=== PATIENT | female | born 1955 | race Caucasian/White ===

== ENCOUNTER 2017-05-11 01:26 | Emergency (ER) | payer BC ==
[2017-05-11] MEDS ORDERED: Metoprolol Tartrate 50 MG Tab PO STA (01:51)
[2017-05-11] MEDS ORDERED: Ketorolac 30 MG/ML SDV IVPUSH ONE (01:51)
--- NOTE | 2017-05-11 02:01 | EDM.PDOC ---
ED HPI GENERAL MEDICAL PROBLEM - General Chief Complaint: Back Pain or Injury Stated Complaint: BACK PAIN Time Seen by Provider: 05/11/17 02:00 - History of Present Illness INITIAL COMMENTS - FREE TEXT/NARRATIVE: HISTORY AND PHYSICAL: History of present illness: Patient is a 61-year-old white female presents with a concern of right posterior rib pain which radiation to her anterior right lower ribs. This came on somewhat acutely tonight she denies trauma denies chest pain shortness of breath nausea vomiting fever chills or other concern. Review of systems: As per history of present illness and below otherwise all systems reviewed and negative. Past medical history: As per history of present illness and as reviewed below otherwise noncontributory. Surgical history: As per history of present illness and as reviewed below otherwise noncontributory. Social history: No reported history of drug or alcohol abuse. Family history: As per history of present illness and as reviewed below otherwise noncontributory. Physical exam: HEENT: Atraumatic, normocephalic, pupils reactive, negative for conjunctival pallor or scleral icterus, mucous membranes moist, throat clear, neck supple, nontender, trachea midline. Lungs: Clear to auscultation, breath sounds equal bilaterally, chest nontender. Heart: S1S2, regular, negative for clicks, rubs, or JVD. Abdomen: Soft, nondistended, no localized tenderness. Negative for masses or hepatosplenomegaly. Negative for costovertebral tenderness. Pelvis: Stable nontender. Genitourinary: Deferred. Rectal: Deferred. Extremities: Atraumatic, negative for cords or calf pain. Neurovascular unremarkable. Neuro: Awake, alert, oriented. Cranial nerves II through XII unremarkable. Cerebellum unremarkable. Motor and sensory unremarkable throughout. Exam nonfocal. Diagnostics: CBC CMP troponin PT/INR chest x-ray EKG Therapeutics: Saline 1 L bolus and Toradol 30 mg IV Impression: #1 right thoracoabdominal pain Definitive disposition and diagnosis as appropriate pending reevaluation and review of above. Middle back Pain Score (Numeric/FACES): 10 - Related Data Allergies Allergy/AdvReac Type Severity Reaction Status Date / Time Sulfa (Sulfonamide Allergy Rash Verified 05/11/17 01:39 Antibiotics) Home Meds: Home Meds Albuterol [IMW: Albuterol HFA] 2 puff INH ASDIRECTED 12/12/15 [History] LORazepam [Ativan] 0.5 mg PO ASDIRECTED PRN 12/12/15 [History] Metoprolol Succinate [Toprol XL] 50 mg PO DAILY 12/12/15 [History] Mometasone/Formoterol [Dulera 200-5 MCG] 2 puff IH BIDRT 12/12/15 [History] Acetaminophen/oxyCODONE [Percocet 325-5 MG] 1 tab PO ASDIRECTED 05/13/17 [ History] Past Medical History HEENT History: Reports: Hard of Hearing Cardiovascular History: Reports: High Cholesterol, Hypertension Respiratory History: Reports: COPD, Other (See Below) Other Respiratory History: emphysema Gastrointestinal History: Reports: Cholelithiasis [employer] History: Reports: - Past Surgical History HEENT Surgical History: Reports: Oral Surgery GI Surgical History: Reports: Appendectomy, Cholecystectomy Female Surgical History: Reports: Section, Hysterectomy Musculoskeletal Surgical History: Reports: Other (See Below) Other Musculoskeletal Surgeries/Procedures:: Back sx Social & Family History - Family History Family Medical History: Noncontributory - Tobacco Use Smoking Status *Q: Never Smoker Years of Tobacco use: 30 Packs/Tins Daily: 0.1 - Caffeine Use Caffeine Use: Reports: Coffee - Recreational Drug Use Recreational Drug Use: No ED ROS GENERAL - Review of Systems Review Of Systems: ROS reveals no pertinent complaints other than HPI. ED EXAM, GENERAL - Physical Exam Exam: See Below (See dictation) Course - Vital Signs Last Recorded V/S: Last Vital Signs Temp 36.3 C 05/11/17 01:26 Pulse 79 05/11/17 05:15 Resp 17 05/11/17 05:15 BP 164/81 H 05/11/17 05:15 Pulse Ox 97 05/11/17 05:15 - Orders/Labs/Meds Labs: Laboratory Tests 05/11/17 05/11/17 05/11/17 Range/Units 01:50 01:50 01:50 WBC 9.89 (4.0-11.0) K/uL RBC 4.94 (4.30-5.90) M/uL Hgb 16.0 (12.0-16.0) g/dL Hct 44.2 (36.0-46.0) % MCV 89.5 (80.0-98.0) fL MCH 32.4 H (27.0-32.0) pg MCHC 36.2 (31.0-37.0) g/dL RDW Std Deviation 40.3 (28.0-62.0) fl RDW Coeff of Joel 12 (11.0-15.0) % Plt Count 230 (150-400) K/uL MPV 9.50 (7.40-12.00) fL Neut % (Auto) 72.7 (48.0-80.0) % Lymph % (Auto) 19.5 (16.0-40.0) % Sierra % (Auto) 6.1 (0.0-15.0) % Eos % (Auto) 1.5 (0.0-7.0) % Baso % (Auto) 0.2 (0.0-1.5) % Neut # (Auto) 7.2 H (1.4-5.7) K/uL Lymph # (Auto) 1.9 (0.6-2.4) K/uL Sierra # (Auto) 0.6 (0.0-0.8) K/uL Eos # (Auto) 0.2 (0.0-0.7) K/uL Baso # (Auto) 0.0 (0.0-0.1) K/uL Nucleated RBC % 0.0 /100WBC Nucleated RBCs # 0 K/uL INR 1.05 Sodium 138 (136-145) mmol/L Potassium 3.9 (3.5-5.1) mmol/L Chloride 103 (98-107) mmol/L Carbon Dioxide 24.5 (21.0-32.0) mmol/L BUN 15 (7.0-18.0) mg/dL Creatinine 0.9 (0.6-1.0) mg/dL Est Cr Clr Drug Dosing TNP Estimated GFR (MDRD) > 60.0 ml/min Glucose 109 H (74-106) mg/dL Calcium 9.1 (8.5-10.1) mg/dL Total Bilirubin 0.4 (0.2-1.0) mg/dL AST 18 (15-37) IU/L ALT 22 (14-63) IU/L Alkaline Phosphatase 72 (46-116) U/L CK-MB (CK-2) 0.8 (0-3.6) ng/mL Troponin I < 0.050 (0.000-0.056) ng/mL Total Protein 7.4 (6.4-8.2) g/dL Albumin 3.9 (3.4-5.0) g/dL Globulin 3.5 (2.0-3.5) g/dL Albumin/Globulin Ratio 1.1 L (1.3-2.8) Urine Color Urine Appearance Urine pH (5.0-8.0) Ur Specific [place] (1.001-1.035) Urine Protein (NEGATIVE) mg/dL Urine Glucose (UA) (NEGATIVE) mg/dL Urine Ketones (NEGATIVE) mg/dL Urine Occult Blood (NEGATIVE) Urine Nitrite (NEGATIVE) Urine Bilirubin (NEGATIVE) Urine Urobilinogen (<2.0) EU/dL Ur Leukocyte Esterase (NEGATIVE) Urine RBC (0-2/HPF) Urine WBC (0-5/HPF) Ur Epithelial Cells (NONE-FEW) Urine Bacteria (NEGATIVE) Urine Mucus (NONE-MOD) 05/11/17 Range/Units 02:02 WBC (4.0-11.0) K/uL RBC (4.30-5.90) M/uL Hgb (12.0-16.0) g/dL Hct (36.0-46.0) % MCV (80.0-98.0) fL MCH (27.0-32.0) pg MCHC (31.0-37.0) g/dL RDW Std Deviation (28.0-62.0) fl RDW Coeff of Joel (11.0-15.0) % Plt Count (150-400) K/uL MPV (7.40-12.00) fL Neut % (Auto) (48.0-80.0) % Lymph % (Auto) (16.0-40.0) % Sierra % (Auto) (0.0-15.0) % Eos % (Auto) (0.0-7.0) % Baso % (Auto) (0.0-1.5) % Neut # (Auto) (1.4-5.7) K/uL Lymph # (Auto) (0.6-2.4) K/uL Sierra # (Auto) (0.0-0.8) K/uL Eos # (Auto) (0.0-0.7) K/uL Baso # (Auto) (0.0-0.1) K/uL Nucleated RBC % /100WBC Nucleated RBCs # K/uL INR Sodium (136-145) mmol/L Potassium (3.5-5.1) mmol/L Chloride (98-107) mmol/L Carbon Dioxide (21.0-32.0) mmol/L BUN (7.0-18.0) mg/dL Creatinine (0.6-1.0) mg/dL Est Cr Clr Drug Dosing Estimated GFR (MDRD) ml/min Glucose (74-106) mg/dL Calcium (8.5-10.1) mg/dL Total Bilirubin (0.2-1.0) mg/dL AST (15-37) IU/L ALT (14-63) IU/L Alkaline Phosphatase (46-116) U/L CK-MB (CK-2) (0-3.6) ng/mL Troponin I (0.000-0.056) ng/mL Total Protein (6.4-8.2) g/dL Albumin (3.4-5.0) g/dL Globulin (2.0-3.5) g/dL Albumin/Globulin Ratio (1.3-2.8) Urine Color YELLOW Urine Appearance CLEAR Urine pH 6.5 (5.0-8.0) Ur Specific [place] 1.015 (1.001-1.035) Urine Protein NEGATIVE (NEGATIVE) mg/dL Urine Glucose (UA) NEGATIVE (NEGATIVE) mg/dL Urine Ketones NEGATIVE (NEGATIVE) mg/dL Urine Occult Blood NEGATIVE (NEGATIVE) Urine Nitrite NEGATIVE (NEGATIVE) Urine Bilirubin NEGATIVE (NEGATIVE) Urine Urobilinogen 0.2 (<2.0) EU/dL Ur Leukocyte Esterase NEGATIVE (NEGATIVE) Urine RBC 0-2 (0-2/HPF) Urine WBC 0-1 (0-5/HPF) Ur Epithelial Cells FEW (NONE-FEW) Urine Bacteria FEW (NEGATIVE) Urine Mucus LIGHT (NONE-MOD) Meds: Medications Discontinued Medications Generic Name Dose Route Start Last Admin Trade Name Freq PRN Reason Stop Dose Admin Hydromorphone HCl 1 mg 05/11/17 02:59 Dilaudid IVPUSH 05/11/17 03:00 ONETIME ONE Hydromorphone HCl Confirm 05/11/17 03:03 Dilaudid Administered 05/11/17 03:04 Dose 2 mg .ROUTE .STK-MED ONE Ketorolac Tromethamine 30 mg 05/11/17 01:51 05/11/17 01:59 Toradol IVPUSH 05/11/17 01:52 30 mg ONETIME ONE Administration Metoprolol Tartrate 50 mg 05/11/17 01:51 05/11/17 01:57 Lopressor PO 05/11/17 01:52 50 mg NOW STA Administration Departure - Departure Time of Disposition: 06:34 Disposition: Home, Self-Care 01 Condition: Good Clinical Impression: Pain - Discharge Information Instructions: Hypertension, [id number], Back Pain, Adult, [id number] Referrals: Myla Scott [employer]IDENT HALL DIRECTOR [Primary Care Provider] - Forms: ED Department Discharge
[2017-05-11 02:39] LABS: CHLORIDE,CL 103 mmol/L (98-107); SODIUM,NA 138 mmol/L (136-145)
[2017-05-11] MEDS ORDERED: HYDROmorphone 2 MG/ML SDV IVPUSH ONE (02:59)
[2017-05-11] MEDS ORDERED: HYDROmorphone 2 MG/ML SDV ONE (03:03)
--- NOTE | 2017-05-11 10:41 | CR ---
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 Site : 1955 Study: XRay Chest [id number]/27/2018 2:10:36 AM Ordering Physician: Doctor Orona Final Report: Indication: Back pain Technique: Chest 1 view Comparison: 12/12/2015. Findings/Impression: Cardiovascular and mediastinum: Heart size and vasculature are normal in caliber and appearance. Mediastinum is within normal limits. Lungs and pleural space: Possible upper lobe emphysematous changes. No consolidation or pleural effusions. Bones and soft tissues: No significant findings. Dictated by Wu Russell MD @ 05/11/2017 2:17:45 AM Dictated by: Wu Russell MD @ 05/11/2017 02:17:50 (Electronic Signature) Report Signed by Proxy. JABIER
--- NOTE | 2017-05-11 13:42 | CT ---
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 Site : 1955 Study: CT Chest/Abd/Pelvis Angio [id number]/27/2018 4:08:27 AM Ordering Physician: ZEFERINO Final Report: INDICATION: BACK PAIN ? AAA HISTORY: Back pain. Evaluate for abdominal aortic aneurysm. COMPARISON: None. TECHNIQUE: CT angiogram of the chest, abdomen, and pelvis. 100 cc of Isovue-370 IV. Coronal /sagittal reconstruction images. FINDINGS: Chest: The ascending thoracic aorta measures 2.8 cm in dimension. The descending thoracic aorta is normal in caliber. There is no thoracic aortic aneurysm or dissection. The brachiocephalic trunk, left common carotid artery, left subclavian artery are normal in caliber. There is no pleural or pericardial effusion. The main pulmonary artery is normal in caliber. There is no pulmonary emboli. No thoracic lymphadenopathy. The lung windows demonstrate advanced centrilobular emphysema. There is no endobronchial mass. There is no bronchiectasis. There is no architectural distortion. There is no suspicious pulmonary nodule. There is no acute airspace disease. Abdomen/pelvis: The celiac axis, SMA, and VIRAL are patent. There is no abdominal aortic aneurysm. There is no retroperitoneal stranding. No dissection flap. Symmetric nephrograms. Benign right renal cyst. No hydronephrosis. No perinephric fluid collection. The spleen size is normal. There is no pancreatic mass or pancreatic duct dilation. No glandular atrophy. No solid hepatic mass. Cholecystectomy. Normal caliber biliary tree. The included segments of the small bowel and colon are normal. There is no mucosal hyper enhancement. No perienteric edema. Minimal diverticula within the colon. No adenopathy by size criteria in the pelvis, retroperitoneum, gastrohepatic ligament, small bowel mesentery. The bone windows demonstrate no lytic or blastic bone lesions. There is osteophytic spurring present at the endplates of the thoracic spine. On sagittal reconstruction images, there is discogenic sclerosis and disc height loss, primarily L4-L5. Impression: 1. No abdominal aortic aneurysm, dissection, or retroperitoneal stranding/ hematoma. 2. The visceral artery branches are patent. 3. No thoracic aortic aneurysm or dissection. 4. No central pulmonary emboli. 5. Advanced centrilobular emphysema. 6. No thoracic, abdominal, or pelvic lymphadenopathy. 7. Benign right renal cyst. Dictated by Sebastian Donnelly MD @ 05/11/2017 4:58:57 AM Dictated by: Sebastian Donnelly MD @ 05/11/2017 04:59:24 (Electronic Signature) Report S[facility] Proxy. [facility]
--- NOTE | 2017-05-11 13:43 | CT ---
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 Site : 1955 Study: CT Chest/Abd/Pelvis Angio [id number]/27/2018 4:08:27 AM Ordering Physician: ZEFERINO Final Report: INDICATION: BACK PAIN ? AAA HISTORY: Back pain. Evaluate for abdominal aortic aneurysm. COMPARISON: None. TECHNIQUE: CT angiogram of the chest, abdomen, and pelvis. 100 cc of Isovue-370 IV. Coronal /sagittal reconstruction images. FINDINGS: Chest: The ascending thoracic aorta measures 2.8 cm in dimension. The descending thoracic aorta is normal in caliber. There is no thoracic aortic aneurysm or dissection. The brachiocephalic trunk, left common carotid artery, left subclavian artery are normal in caliber. There is no pleural or pericardial effusion. The main pulmonary artery is normal in caliber. There is no pulmonary emboli. No thoracic lymphadenopathy. The lung windows demonstrate advanced centrilobular emphysema. There is no endobronchial mass. There is no bronchiectasis. There is no architectural distortion. There is no suspicious pulmonary nodule. There is no acute airspace disease. Abdomen/pelvis: The celiac axis, SMA, and VIRAL are patent. There is no abdominal aortic aneurysm. There is no retroperitoneal stranding. No dissection flap. Symmetric nephrograms. Benign right renal cyst. No hydronephrosis. No perinephric fluid collection. The spleen size is normal. There is no pancreatic mass or pancreatic duct dilation. No glandular atrophy. No solid hepatic mass. Cholecystectomy. Normal caliber biliary tree. The included segments of the small bowel and colon are normal. There is no mucosal hyper enhancement. No perienteric edema. Minimal diverticula within the colon. No adenopathy by size criteria in the pelvis, retroperitoneum, gastrohepatic ligament, small bowel mesentery. The bone windows demonstrate no lytic or blastic bone lesions. There is osteophytic spurring present at the endplates of the thoracic spine. On sagittal reconstruction images, there is discogenic sclerosis and disc height loss, primarily L4-L5. Impression: 1. No abdominal aortic aneurysm, dissection, or retroperitoneal stranding/ hematoma. 2. The visceral artery branches are patent. 3. No thoracic aortic aneurysm or dissection. 4. No central pulmonary emboli. 5. Advanced centrilobular emphysema. 6. No thoracic, abdominal, or pelvic lymphadenopathy. 7. Benign right renal cyst. Dictated by Sebastian Donnelly MD @ 05/11/2017 4:58:57 AM Dictated by: Sebastian Donnelly MD @ 05/11/2017 04:59:24 (Electronic Signature) Report Signed by Proxy. [facility]
[2017-05-12 04:22] VITALS: BP 164/81
== END 2017-05-11 05:31 | disposition home or self-care (01) ==
LOC: MW.ED 01:26
DX: M54.6 Pain in thoracic spine (principal); E78.00 Pure hypercholesterolemia, unspecified; I10 Essential (primary) hypertension; J44.9 Chronic obstructive pulmonary disease, unspecified; Z88.2 Allergy status to sulfonamides; Z79.899 Other long term (current) drug therapy
CPT/HCPCS: 71045; 71275; 74174; 80053; 81001; 82553; 84484; 85025; 85610; 93005; 96374; 96375; 99284; A9270; J1170; J1885; 99283

== ENCOUNTER 2017-05-13 13:14 | Emergency (ER) | payer BC ==
[2017-05-13] MEDS ORDERED: Sodium Chloride 0.9% 1,000 ML IV ONE (13:16)
[2017-05-13] MEDS ORDERED: Aspirin 81 MG Tab.Chew PO ONE (13:16)
[2017-05-13] MEDS ORDERED: Ketorolac 30 MG/ML SDV IVPUSH ONE (13:29)
[2017-05-13] MEDS ORDERED: Morphine 4 MG/ML Syringe IVPUSH ONE ×2 (14:25→15:40)
[2017-05-13 14:36] LABS: CHLORIDE,CL 102 mmol/L (98-107); SODIUM,NA 138 mmol/L (136-145)
[2017-05-13] MEDS ORDERED: Ondansetron 4 MG/2 ML SDV IVPUSH ONE (14:45)
--- NOTE | 2017-05-13 14:54 | CR ---
EXAMINATION: Right RIBS HISTORY: Pain COMPARISON: CT dated 05/11/2017 TECHNIQUE: 2 views FINDINGS/IMPRESSION: No displaced rib fracture identified. Bone mineralization is normal. No right-si ded pleural effusion or pneumothorax.
--- NOTE | 2017-05-13 15:28 | EDM.PDOC ---
ED HPI GENERAL MEDICAL PROBLEM - General Chief Complaint: Back Pain or Injury Stated Complaint: LT WALL CHEST PAIN Time Seen by Provider: 05/13/17 15:25 Source of Information: Reports: Patient - History of Present Illness INITIAL COMMENTS - FREE TEXT/NARRATIVE: HISTORY AND PHYSICAL: History of present illness: [Patient presents with right-sided chest wall pain. She is had the pain over the last week, she had a fall approximately 1 week prior pain began several days after she has had an ER visit previously for similar symptoms. With full evaluation including CTA of chest no acute findings were found at that time. Pain had somewhat alleviated over the last couple of days it was tolerable measuring of 5 out of 10 however with driving today she noted an increased episode of 10 out of 10 pain she presents as such with significant discomfort blood pressure is quite elevated due to pain. With pain treatment the blood pressures come down to 190s over 90s. No fever nausea vomiting chills sweats no shortness breath headache dizziness or palpitation no bowel or urine symptoms Pain is improved post Toradol and ultimately morphine 2 mg patient notes that she has had shingles in a similar distribution only affecting the left side or rashes apparent today, patient has history of cholecystectomy ] Review of systems: As per history of present illness and below otherwise all systems reviewed and negative. Past medical history: As per history of present illness and as reviewed below otherwise noncontributory. Surgical history: As per history of present illness and as reviewed below otherwise noncontributory. Social history: No reported history of drug or alcohol abuse. Family history: As per history of present illness and as reviewed below otherwise noncontributory. Physical exam: HEENT: Atraumatic, normocephalic, pupils reactive, negative for conjunctival pallor or scleral icterus, mucous membranes moist, throat clear, neck supple, nontender, trachea midline. Lungs: Clear to auscultation, breath sounds equal bilaterally, chest nontender. Heart: S1S2, regular, negative for clicks, rubs, or JVD. Abdomen: Soft, nondistended, nontender. Negative for masses or hepatosplenomegaly. Negative for costovertebral tenderness. Pelvis: Stable nontender. Genitourinary: Deferred. Rectal: Deferred. Extremities: Atraumatic, negative for cords or calf pain. Neurovascular unremarkable. Neuro: Awake, alert, oriented. Cranial nerves II through XII unremarkable. Cerebellum unremarkable. Motor and sensory unremarkable throughout. Exam nonfocal. SkinUnremarkable outside of well-healed surgical scars consistent with cholecystectomy Diagnostics: [CBC CMP troponin EKG Ribs]Series CTA chest on file Previous chest x-ray on file from 2 days prior Therapeutics: [ aspirin 324 mg chewable on arrival Toradol 30 mg IV Morphine 2 mg IV ][place] Valtrex Impression: [Right-sided chest wall pain Cannot rule out aberrant shingles] Definitive disposition and diagnosis as appropriate pending reevaluation and review of above. Right Back Pain Score (Numeric/FACES): 9 - Related Data Allergies Allergy/AdvReac Type Severity Reaction Status Date / Time Sulfa (Sulfonamide Allergy Rash Verified 05/11/17 01:39 Antibiotics) Home Meds: Home Meds Albuterol [IMW: Albuterol HFA] 2 puff INH ASDIRECTED 12/12/15 [History] LORazepam [Ativan] 0.5 mg PO ASDIRECTED PRN 12/12/15 [History] Metoprolol Succinate [Toprol XL] 50 mg PO DAILY 12/12/15 [History] Mometasone/Formoterol [Dulera 200-5 MCG] 2 puff IH BIDRT 12/12/15 [History] Acetaminophen/oxyCODONE [Percocet 325-5 MG] 1 tab PO ASDIRECTED 05/13/17 [ History] Past Medical History HEENT History: Reports: Hard of Hearing Cardiovascular History: Reports: High Cholesterol, Hypertension Respiratory History: Reports: COPD, Other (See Below) Other Respiratory History: emphysema Gastrointestinal History: Reports: Cholelithiasis 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 History: Reports: - Infectious Disease History Infectious Disease History: Reports: Chicken Pox, Measles, Shingles - Past Surgical History HEENT Surgical History: Reports: Oral Surgery GI Surgical History: Reports: Appendectomy, Cholecystectomy Female Surgical History: Reports: Section, Hysterectomy Musculoskeletal Surgical History: Reports: Other (See Below) Other Musculoskeletal Surgeries/Procedures:: Back sx Social & Family History - Family History Family Medical History: Noncontributory - Tobacco Use Smoking Status *Q: Current Every Day Smoker Years of Tobacco use: 30 Packs/Tins Daily: 0 - Caffeine Use Caffeine Use: Reports: Coffee - Recreational Drug Use Recreational Drug Use: No ED ROS GENERAL - Review of Systems Review Of Systems: ROS reveals no pertinent complaints other than HPI. ED EXAM, GENERAL - Physical Exam Exam: See Below Course - Vital Signs Last Recorded V/S: Last Vital Signs Temp 97.5 F 05/13/17 13:19 Pulse 90 05/13/17 14:59 Resp 22 H 05/13/17 14:59 BP 197/99 H 05/13/17 14:59 Pulse Ox 97 05/13/17 14:59 - Orders/Labs/Meds Orders: Active Orders 24 hr Category Date Time Status UA W/MICROSCOPIC [URIN] Stat Lab 05/13/17 13:30 Ordered Labs: Laboratory Tests 05/13/17 05/13/17 05/13/17 Range/Units 13:30 13:35 13:35 WBC 9.81 (4.0-11.0) K/uL RBC 5.45 (4.30-5.90) M/uL Hgb 17.6 H (12.0-16.0) g/dL Hct 49.0 H (36.0-46.0) % MCV 89.9 (80.0-98.0) fL MCH 32.3 H (27.0-32.0) pg MCHC 35.9 (31.0-37.0) g/dL RDW Std Deviation 40.6 (28.0-62.0) fl RDW Coeff of Joel 13 (11.0-15.0) % Plt Count 260 (150-400) K/uL MPV 9.50 (7.40-12.00) fL Neut % (Auto) 74.0 (48.0-80.0) % Lymph % (Auto) 19.7 (16.0-40.0) % [place] % (Auto) 5.2 (0.0-15.0) % Eos % (Auto) 0.9 (0.0-7.0) % Baso % (Auto) 0.2 (0.0-1.5) % Neut # (Auto) 7.3 H (1.4-5.7) K/uL Lymph # (Auto) 1.9 (0.6-2.4) K/uL [place] # (Auto) 0.5 (0.0-0.8) K/uL Eos # (Auto) 0.1 (0.0-0.7) K/uL Baso # (Auto) 0.0 (0.0-0.1) K/uL Nucleated RBC % 0.0 /100WBC Nucleated RBCs # 0 K/uL Sodium 138 (136-145) mmol/L Potassium 3.5 (3.5-5.1) mmol/L Chloride 102 (98-107) mmol/L Carbon Dioxide 27.3 (21.0-32.0) mmol/L BUN 9 (7.0-18.0) mg/dL Creatinine 0.8 (0.6-1.0) mg/dL Est Cr Clr Drug Dosing 57.67 mL/min Estimated GFR (MDRD) > 60.0 ml/min Glucose 109 H (74-106) mg/dL Calcium 9.5 (8.5-10.1) mg/dL Total Bilirubin 0.7 (0.2-1.0) mg/dL AST 21 (15-37) IU/L ALT 21 (14-63) IU/L Alkaline Phosphatase 82 (46-116) U/L Troponin I < 0.050 (0.000-0.056) ng/mL Total Protein 8.4 H (6.4-8.2) g/dL Albumin 4.3 (3.4-5.0) g/dL Globulin 4.1 H (2.0-3.5) g/dL Albumin/Globulin Ratio 1.1 L (1.3-2.8) Urine Color YELLOW Urine Appearance CLEAR Urine pH 7.5 (5.0-8.0) Ur Specific [place] 1.015 (1.001-1.035) Urine Protein 100 (NEGATIVE) mg/dL Urine Glucose (UA) NEGATIVE (NEGATIVE) mg/dL Urine Ketones NEGATIVE (NEGATIVE) mg/dL Urine Occult Blood TRACE-LYSED (NEGATIVE) Urine Nitrite NEGATIVE (NEGATIVE) Urine Bilirubin NEGATIVE (NEGATIVE) Urine Urobilinogen 0.2 (<2.0) EU/dL Ur Leukocyte Esterase NEGATIVE (NEGATIVE) Urine RBC 0-2 (0-2/HPF) Urine WBC 0-1 (0-5/HPF) Ur Epithelial Cells FEW (NONE-FEW) Urine Bacteria FEW (NEGATIVE) Meds: Medications Discontinued Medications Generic Name Dose Route Start Last Admin Trade Name Freq PRN Reason Stop Dose Admin Aspirin 324 mg 05/13/17 13:16 05/13/17 13:55 Aspirin PO 05/13/17 13:17 324 mg ONETIME ONE Administration Sodium Chloride 1,000 mls @ 999 mls/hr 05/13/17 13:16 05/13/17 13:49 Normal Saline IV 05/13/17 14:16 999 mls/hr STAT ONE Administration Ketorolac Tromethamine 30 mg 05/13/17 13:29 05/13/17 13:56 Toradol IVPUSH 05/13/17 13:30 30 mg ONETIME ONE Administration Morphine Sulfate 2 mg 05/13/17 14:25 05/13/17 14:50 Morphine IVPUSH 05/13/17 14:26 2 mg ONETIME ONE Administration Ondansetron HCl 4 mg 05/13/17 14:45 05/13/17 14:51 Zofran IVPUSH 05/13/17 14:46 4 mg ONETIME ONE Administration Departure - Departure Time of Disposition: 15:29 Disposition: Home, Self-Care 01 Condition: Good Clinical Impression: Chest wall pain - Discharge Information Referrals: PCP,Unknown [Primary Care Provider] - Forms: ED Department Discharge Additional Instructions: The following information is given to patients seen in the emergency department who are being discharged to home. This information is to outline your options for follow-up care. We provide all patients seen in our emergency department with a follow-up referral. The need for follow-up, as well as the timing and circumstances, are variable depending upon the specifics of your emergency department visit. If you don't have a primary care physician on staff, we will provide you with a referral. We always advise you to contact your personal physician following an emergency department visit to inform them of the circumstance of the visit and for follow-up with them and/or the need for any referrals to a consulting specialist. The emergency department will also refer you to a specialist when appropriate. This referral assures that you have the opportunity for follow-up care with a specialist. All of these measure are taken in an effort to provide you with optimal care, which includes your follow-up. Under all circumstances we always encourage you to contact your private physician who remains a resource for coordinating your care. When calling for follow-up care, please make the office aware that this follow-up is from your recent emergency room visit. If for any reason you are refused follow-up, please contact the [facility] emergency department at and asked to speak to the emergency department charge nurse. - My Orders Last 24 Hours: My Active Orders 05/13/17 13:30 UA W/MICROSCOPIC [URIN] Stat - Assessment/Plan Last 24 Hours: My Active Orders 05/13/17 13:30 UA W/MICROSCOPIC [URIN] Stat
[2017-05-13 18:46] VITALS: BP 174/85
== END 2017-05-13 15:45 | disposition home or self-care (01) ==
LOC: MW.ED 13:14
DX: R07.89 Other chest pain (principal); E78.00 Pure hypercholesterolemia, unspecified; I10 Essential (primary) hypertension; F17.210 Nicotine dependence, cigarettes, uncomplicated; J44.9 Chronic obstructive pulmonary disease, unspecified; Z79.899 Other long term (current) drug therapy; Z88.2 Allergy status to sulfonamides
CPT/HCPCS: 36415; 71100; 80053; 81001; 84484; 85025; 96361; 96374; 96375; 96376; 99284; A9270; J1885; J2270; J2405; J7040; 99283

== ENCOUNTER 2021-06-09 11:35 | Emergency (ER) | payer BC ==
[2021-06-09] MEDS ORDERED: Sodium Chloride 0.9% 2.5 ML Syringe FLUSH PRN (11:39)
[2021-06-09] MEDS ORDERED: Sodium Chloride 0.9% 10 ML Syringe FLUSH PRN (11:39)
[2021-06-09 12:28] LABS: BLOOD UREA NITROGEN,BUN 10 mg/dL (7.0-18.0); CARBON DIOXIDE,CO2 25.8 mmol/L (21.0-32.0); CHLORIDE,CL 104 mmol/L (98-107); GLUCOSE RANDOM 112 mg/dL (74-106); POTASSIUM,K 3.6 mmol/L (3.5-5.1); SODIUM,NA 140 mmol/L (136-145)
[2021-06-09] MEDS ORDERED: Iopamidol 755 MG/ML 500 ML Multipack Bottle IVPUSH STA (13:18)
[2021-06-09] MEDS ORDERED: traMADol 50 MG Tab PO ONE (14:11)
[2021-06-09 17:18] VITALS: BP 127/68; PULSE 68
== END 2021-06-09 14:35 | disposition home or self-care (01) ==
LOC: MW.ED 11:35
DX: R07.89 Other chest pain (principal); J44.9 Chronic obstructive pulmonary disease, unspecified; I10 Essential (primary) hypertension; I25.10 Atherosclerotic heart disease of native coronary artery without angina pectoris; Z86.73 Personal history of transient ischemic attack (TIA), and cerebral infarction without residual deficits; Z88.2 Allergy status to sulfonamides
CPT/HCPCS: 36415; 71045; 71275; 80053; 83880; 84484; 85025; 85379; 93005; 99285; A9270; J3490; Q9967

== ENCOUNTER 2021-07-08 07:41 | Day surgery (SDC) | payer BC ==
[~2021-07-08 07:41] MED LIST: Lactated Ringers 1,000 ML IV SCH
[2021-07-08] MEDS ORDERED: Metoclopramide 10 MG/2 ML SDV IVPUSH PRN (08:21)
[2021-07-08] MEDS ORDERED: Naloxone 0.4 MG/ML SDV IVPUSH PRN (08:21)
[2021-07-08] MEDS ORDERED: HYDROmorphone 1 MG/ML Syringe IVPUSH PRN (08:21)
[2021-07-08] MEDS ORDERED: Ondansetron 4 MG/2 ML SDV IVPUSH PRN (08:21)
[2021-07-08] MEDS ORDERED: Albuterol 0.083% 2.5 MG/3 ML Neb Soln NEB PRN (08:21)
[2021-07-08] MEDS ORDERED: fentaNYL 100 MCG/2 ML SDV IVPUSH PRN (08:21)
[2021-07-08] MEDS ORDERED: Labetalol 100 MG/20 ML MDV ONE (08:36)
[2021-07-08] MEDS: Labetalol 100 MG/20 ML MDV IVPUSH SCH ×2 (08:39→08:56)
[2021-07-08] MEDS ORDERED: Bupivacaine 0.25% 10 ML SDV ONE (09:24)
[2021-07-08] MEDS ORDERED: fentaNYL 100 MCG/2 ML SDV ONE (09:25)
[2021-07-08] MEDS ORDERED: Fluorescein 5 ML Vial ONE (09:25)
[2021-07-08] MEDS ORDERED: Lidocaine 1% with EPINEPHrine 1:100,000 10 ML MDV ONE (09:25)
[2021-07-08] MEDS ORDERED: Propofol 200 MG/20 ML SDV ONE (09:25)
[2021-07-08] MEDS ORDERED: Midazolam 1 MG/ML 2 ML SDV ONE (09:25)
[2021-07-08] MEDS ORDERED: Octyl 2-Cyanoacrylate 1 Tube ONE (09:25)
[2021-07-08 11:14] VITALS: PULSE 73
[2021-07-08 11:26] VITALS: BP 145/67
== END 2021-07-08 12:02 | disposition home or self-care (01) ==
LOC: MW.SDS 07:41
PROVIDERS: ATTEND Obstetrics & Gynecology
DX: N39.46 Mixed incontinence (principal); I10 Essential (primary) hypertension; E78.1 Pure hyperglyceridemia; J44.9 Chronic obstructive pulmonary disease, unspecified; Z90.49 Acquired absence of other specified parts of digestive tract; Z98.890 Other specified postprocedural states; Z79.899 Other long term (current) drug therapy; Z87.891 Personal history of nicotine dependence; Z88.2 Allergy status to sulfonamides
CPT/HCPCS: 36415; 57288; 85027; A9270; J0690; J2250; J2704; J3010; J3490; J7120; 00860; C1771